=== PATIENT | male | born 1980 | race African-American/Black ===

== ENCOUNTER 2018-12-19 17:29 | Emergency (ER) | payer OTHER | END 2018-12-20 01:36 | disposition left against medical advice (07) | LOC: JER 17:29 | PROC: 3E033NZ Introduction of Analgesics, Hypnotics, Sedatives into Peripheral Vein, Percutaneous Approach (ICD-10-PCS; principal; 2018-12-19) | PROC: 00JU3ZZ Inspection of Spinal Canal, Percutaneous Approach (ICD-10-PCS; 2018-12-19) | DX: R50.9 Fever, unspecified (principal); R51 Headache; I10 Essential (primary) hypertension; J45.909 Unspecified asthma, uncomplicated; M17.0 Bilateral primary osteoarthritis of knee ==

== ENCOUNTER 2021-08-16 20:12 | Inpatient (IN) | payer OTHER ==
[2021-08-16 20:21] VITALS: BMI 46.1
[2021-08-16] MEDS ORDERED: SODIUM CHLORIDE 0.9% 500 ML INFUS.BAG IV ONE (21:22)
[2021-08-16] MEDS ORDERED: ACETAMINOPHEN 1000 MG/100 ML BAG IVPB ONE (21:22)
[2021-08-16 21:24] LABS: BASO % 0.6 % (0-2.0); EOS % 0.7 % (0-4.5); HEMATOCRIT 38.2 % (35.4-49); HEMOGLOBIN 12.9 GM/dL (11.7-16.9); LYMPH % 13.8 % (8-40); MCH 29.4 pg (25.7-33.7); MCHC 33.8 g/dl (32.0-35.9); MEAN CELL VOLUME 86.9 fl (80-96); MONO % 4.3 % (3.8-10.2); NEUT % 80.6 % (42.8-82.8); PLATELET COUNT 175 10^3/uL (134-434); RDW 13.7 % (11.9-15.9); WHITE BLOOD COUNT 5.5 K/mm3 (4.0-10.0)
[2021-08-16 21:31] LABS: INR 1.16 (0.83-1.09); PROTHROMBIN TIME (PATIENT) 13.4 SEC (9.7-13.0)
[2021-08-16 21:32] LABS: URINE APPEARANCE CLEAR; URINE BILIRUBIN NEGATIVE (NEGATIVE); URINE COLOR YELLOW; URINE GLUCOSE (UA) NEGATIVE (NEGATIVE); URINE KETONE NEGATIVE (NEGATIVE); URINE LEUK ESTERASE NEGATIVE (NEGATIVE); URINE NITRITE NEGATIVE (NEGATIVE); URINE PROTEIN NEGATIVE (NEGATIVE); URINE UROBILINOGEN 0.2 mg/dL (0.2-1.0)
[2021-08-16 21:34] LABS: ACTIVATED PTT 35.3 SECONDS (25.2-36.5)
[2021-08-16] MEDS ORDERED: ACETAMINOPHEN INJECTION 100 ML IVPB ONE (21:42)
[2021-08-16] MEDS ORDERED: ALBUTEROL SO4 2.5/IPRATROPIUM 0.5 INH SOL 3 ML VIAL.NEB. NEB ONE (21:42)
[2021-08-16 21:44] LABS: ALBUMIN 3.4 g/dl (3.4-5.0); CALCIUM 8.2 mg/dL (8.5-10.1)
[2021-08-16 21:46] LABS: BLOOD UREA NITROGEN 13.4 mg/dL (7-18)
[2021-08-16 21:48] LABS: CREATININE 1.7 mg/dL (0.55-1.3)
[2021-08-16 21:50] LABS: TOT PROT 7.2 g/dl (6.4-8.2)
[2021-08-16 21:51] LABS: BILIRUBIN,TOTAL 0.5 mg/dL (0.2-1)
[2021-08-16] MEDS: ALBUTEROL SO4 2.5/IPRATROPIUM 0.5 INH SOL 3 ML VIAL.NEB. NEB SCH ×3 (22:00→22:29)
[2021-08-16] MEDS ORDERED: LIDOCAINE HCL 2% JELLY 10 ML CARTRIDGE PR ONE (22:05)
[2021-08-16 22:19] LABS: LACTIC ACID 6.8 mmol/L (0.4-2.0)
[2021-08-16] MEDS ORDERED: VANCOMYCIN 1 GM in D5W (PRE-DOCKED) 1,000 MG/250 ML IVPB ONE (22:37)
[2021-08-16] MEDS ORDERED: PIPERACILLIN/TAZOB 4.5 GM 4.5 GM in DEXTROSE 5%-WATER 100 ML IVPB ONE (22:37)
[2021-08-16] MEDS ORDERED: PIPERACILLIN/TAZOB 4.5 GM 4.5 GM/100 ML BAG IVPB ONE (23:32)
[2021-08-16] MEDS ORDERED: VANCOMYCIN 1 GRAM (PRE-DOCKED) 1,000 MG/250 ML BAG IVPB ONE (23:33)
[2021-08-17] MEDS ORDERED: KETOROLAC TROMETHAMINE 30 MG/1 ML VIAL IVPUSH ONE (01:32)
[2021-08-17] MEDS: ACETAMINOPHEN 1000 MG/100 ML BAG IVPB ONE ×2 (01:35→06:58)
[2021-08-17] MEDS ORDERED: SODIUM CHLORIDE 1,000 ML IV SCH (05:00)
[2021-08-17] MEDS ORDERED: ENOXAPARIN NA (PORCINE) 40 MG/0.4 ML DISP.SYRIN SQ ONE (06:27)
[2021-08-17] MEDS ORDERED: KETOROLAC TROMETHAMINE 30 MG/1 ML VIAL ONE (06:28)
[2021-08-17] MEDS ORDERED: ACETAMINOPHEN INJECTION 100 ML IVPB ONE (06:37)
[2021-08-17] MEDS ORDERED: ENOXAPARIN 120 MG, ENOXAPARIN 30 MG SQ ONE (06:45)
[2021-08-17] MEDS ORDERED: ACETAMINOPHEN 1000 MG/100 ML BAG IVPB PRN (08:15)
[2021-08-17] MEDS ORDERED: IBUPROFEN 600 MG TABLET (FP) PO PRN ×2 (08:16→10:02)
[2021-08-17] MEDS ORDERED: predniSONE 20 MG TABLET (UD) ONE (09:38)
[2021-08-17] MEDS ORDERED: predniSONE 20 MG TABLET (UD) PO SCH (10:00)
[2021-08-17] MEDS ORDERED: ENOXAPARIN NA (PORCINE) 40 MG/0.4 ML DISP.SYRIN SQ SCH (10:00)
[2021-08-17] MEDS ORDERED: NICOTINE 7 MG/24 HOURS TOPICAL PATCH TD SCH (10:00)
[2021-08-17 11:18] LABS: CALCIUM 7.9 mg/dL (8.5-10.1)
[2021-08-17 11:22] LABS: CREATININE 1.6 mg/dL (0.55-1.3)
[2021-08-17 14:41] VITALS: TEMP 99
[2021-08-17 16:10] VITALS: BP 147/79; PULSE 73
== END 2021-08-17 16:23 | disposition left against medical advice (07) | DRG 720 ==
LOC: JER 20:12 → JERBED 08-17 01:10
PROVIDERS: ADMIT Hospitalist; ATTEND Internal Medicine
DX: A41.9 Sepsis, unspecified organism (principal); N17.9 Acute kidney failure, unspecified; E87.2 Acidosis; E66.01 Morbid (severe) obesity due to excess calories; Z68.42 Body mass index [BMI] 45.0-49.9, adult; I10 Essential (primary) hypertension; R00.0 Tachycardia, unspecified; J44.9 Chronic obstructive pulmonary disease, unspecified; Z53.29 Procedure and treatment not carried out because of patient's decision for other reasons; R51.9 Headache, unspecified
CPT/HCPCS: 36415; 70450-TC; 71045-TC-FY; 76775-TC; 80048; 80053; 80061; 81003; 82550; 82553; 82570; 83036; 83605; 84300; 84484; 84540; 85025; 85379; 85610; 85651; 85730; 86140; 86850; 86900; 86901; 87040; 87076; 87086; 87804; 87807; 93005; 93010; 93971-TC; 99285-25; C9803; U0003; U0005

== ENCOUNTER 2022-09-25 17:20 | Observation (INO) | payer OTHER ==
[2022-09-25 17:39] VITALS: BP 129/67; PULSE 72; RESP 20; TEMP 98.7; BMI 48.1
[2022-09-25 18:51] LABS: VENOUS BASE EXCESS 2.5 mmol/L (-2-2); VENOUS O2 SATURATION 76.1 % (70-80); VENOUS PCO2 50.7 mmHg (38-52); VENOUS PH 7.371 (7.310-7.410)
[2022-09-25 18:58] LABS: INR 1.05 (0.83-1.09); PROTHROMBIN TIME (PATIENT) 12.2 SEC (9.7-13.0)
[2022-09-25] MEDS ORDERED: ASPIRIN 81 MG CHEWABLE TABLETS PO ONE (18:59)
[2022-09-25 19:01] LABS: ACTIVATED PTT 35.7 SECONDS (25.2-36.5)
[2022-09-25 19:17] LABS: BLOOD UREA NITROGEN 12.3 mg/dL (7-18); CALCIUM 8.9 mg/dL (8.5-10.1)
[2022-09-25 19:18] LABS: ALBUMIN 3.5 g/dl (3.4-5.0); MAGNESIUM 2.2 mg/dL (1.8-2.4)
[2022-09-25 19:22] LABS: CREATININE 1.3 mg/dL (0.55-1.3); TOT PROT 7.5 g/dl (6.4-8.2)
[2022-09-25 19:23] LABS: BILIRUBIN,TOTAL 0.3 mg/dL (0.2-1)
[2022-09-25 19:58] LABS: HEMATOCRIT 40.7 % (35.4-49); HEMOGLOBIN 13.8 GM/dL (11.7-16.9); MCH 29.1 pg (25.7-33.7); MCHC 33.9 g/dl (32.0-35.9); MEAN CELL VOLUME 85.8 fl (80-96); MEAN PLT VOLUME 8.6 fl (7.5-11.1); PLATELET COUNT 242 10^3/uL (134-434); RBC 4.74 M/mm3 (4.00-5.60); RDW 14.1 % (11.9-15.9); WHITE BLOOD COUNT 7.7 K/mm3 (4.0-10.0)
[2022-09-25] MEDS ORDERED: ASPIRIN 81 MG CHEWABLE TABLETS ONE (20:04)
[2022-09-25 20:37] LABS: ANISOCYTOSIS 1+; MACROCYTOSIS 0
[2022-09-25] MEDS ORDERED: ACETAMINOPHEN 325 MG TABLET (FP) PO PRN (21:25)
[2022-09-25] MEDS ORDERED: DOCUSATE SODIUM 100 MG CAPSULE (FP) PO PRN (21:25)
== END 2022-09-26 00:36 | disposition left against medical advice (07) ==
LOC: JER 17:20 → JERBED 20:52
PROVIDERS: ADMIT Internal Medicine; ATTEND Internal Medicine
DX: F17.210 Nicotine dependence, cigarettes, uncomplicated (principal); E66.01 Morbid (severe) obesity due to excess calories; Z68.42 Body mass index [BMI] 45.0-49.9, adult; J45.909 Unspecified asthma, uncomplicated; R06.02 Shortness of breath; R42 Dizziness and giddiness; R07.9 Chest pain, unspecified; I10 Essential (primary) hypertension; G51.0 Bell's palsy
CPT/HCPCS: 0241U-QW; 36415; 71045-TC-FY; 80053; 82550; 82553; 82803; 83735; 84484; 85025; 85610; 85730; 93005; 93010; 99285-25; G0378